=== PATIENT | male | born 1980 | race Caucasian/White ===

== ENCOUNTER 2017-07-24 23:00 | Emergency (ER) | payer SELFPAY ==
[2017-07-24] MEDS ORDERED: NS 1,000 ML IV ONE (23:28)
[2017-07-24] MEDS ORDERED: ONDANSETRON 4 MG/2 ML VIAL IVP ONE (23:28)
[2017-07-24] MEDS ORDERED: KETOROLAC 15 MG/1 ML SDV IVP ONE (23:28)
[2017-07-24] MEDS ORDERED: FAMOTIDINE 20 MG/NACL 50 ML IV ONE (23:28)
--- NOTE | 2017-07-24 23:29 | EDPHY ---
H & P Stated Complaint: UPPER ABD PAIN/NAUSEA X 3HRS Time Seen by Provider: 07/24/17 23:10 HPI/ROS: HPI The patient presents with abdominal pain which began at about 8:00 p.m. Became progressively worse. The pain is in his epigastric region though radiates throughout his abdomen. It is a burning and constant pain associated with some nausea without any vomiting. During the day today he had had 4 stools which is unusual for him. Otherwise he was feeling well. He ate a meal at 7:30 a.m. Of a protein shake, this made his symptoms worse. He has not had a fever. He has been feeling well otherwise. No prior abdominal operations. REVIEW OF SYSTEMS Constitutional: No fever, no chills. Eyes: No discharge. ENT: No sore throat. Cardiovascular: No chest pain, no palpitations. Respiratory: No cough, no shortness of breath. Gastrointestinal: See HPI Genitourinary: No hematuria. Musculoskeletal: No back pain. Skin: No rashes. Neurological: No headache. PMHx: Healthy, takes Zoloft only Soc Hx: Lives at home with , 1-2 beers a day PHYSICAL General Appearance: Alert, uncomfortable appearing Eyes: Pupils equal and round no pallor or injection ENT, Mouth: Mucous membranes moist Respiratory: There are no retractions, lungs are clear to auscultation Cardiovascular: Regular rate and rhythm Gastrointestinal: Abdomen is soft with tenderness in the epigastrium, no masses , bowel sounds normal Neurological: A&O, moves all extremities Skin: Warm and dry, no rashes Musculoskeletal: Neck is supple non tender Extremities: symmetrical, full range of motion Psychiatric: Patient is oriented X 3, there is no agitation Source: Patient Exam Limitations: No limitations - Personal History Current Tetanus Diphtheria and Acellular Pertussis (TDAP): Yes - Medical/Surgical History Hx Asthma: No Hx Chronic Respiratory Disease: No Hx Diabetes: No Hx Cardiac Disease: No Hx Renal Disease: No Hx Cirrhosis: No Hx Alcoholism: No Hx HIV/AIDS: No Hx Splenectomy or Spleen Trauma: No Other PMH: DENIES - Social History Smoking Status: Never smoked Constitutional: Initial Vital Signs Temperature (C) 36.9 C 07/24/17 23:04 Heart Rate 78 07/24/17 23:04 Respiratory Rate 14 07/24/17 23:04 Blood Pressure 122/82 H 07/24/17 23:04 O2 Sat (%) 95 07/24/17 23:04 O2 Delivery Mode Room Air O2 (L/minute) 2 Allergies/Adverse Reactions: No Known Allergies Allergy (Unverified 07/24/17 23:03) Home Medications: Medication Instructions Recorded NK [No Known Home Meds] 07/24/17 Medical Decision Making Differential Diagnosis: 36-year-old male presents with epigastric abdominal pain associated with nausea which is severe over the last several hours. On exam, vital signs are normal, he is uncomfortable appearing, he has epigastric tenderness. Differential diagnosis includes gastritis, GERD, biliary colic, cholecystitis, pancreatitis, perforated ulcer. 12:13 a.m.- Patient's labs were checked and do reveal leukocytosis, otherwise normal. He is reassessed and he is still having considerable pain. Abdominal exam reveals tenderness in the epigastrium. Plan for CT scan of his abdomen to evaluate for perforated viscus verses appendicitis. I have ordered additional pain medication. 2:45 a.m.- Patient has been feeling better for the last several hours. He was able to tolerate water and crackers. His abdominal exam is now benign. I feel he is likely suffered from gastritis. He refused CT scan. And now, given that his pain is improved, I feel this is reasonable. We have discussed return precautions, as he may be suffering from early appendicitis. Otherwise, I have advised him to drink plenty of fluids, maintain a bland diet, take H2 luna or antacid as needed for pain. - Data Points Laboratory Results: Laboratory Results 07/24/17 23:15 07/24/17 23:15 07/24/17 07/24/17 23:15 23:15 WBC 15.43 10^3/uL H 10^3/uL (3.80-9.50) RBC 5.24 10^6/uL 10^6/uL (4.40-6.38) Hgb 16.7 g/dL g/dL (13.7-17.5) Hct 47.0 % % (40.0-51.0) MCV 89.7 fL fL (81.5-99.8) MCH 31.9 pg pg (27.9-34.1) MCHC 35.5 g/dL g/dL (32.4-36.7) RDW 11.9 % % (11.5-15.2) Plt Count 235 10^3/uL 10^3/uL (150-400) MPV 9.5 fL fL (8.7-11.7) Neut % (Auto) 79.2 % H % (39.3-74.2) Lymph % (Auto) 13.4 % L % (15.0-45.0) [place] % (Auto) 6.0 % % (4.5-13.0) Eos % (Auto) 0.8 % % (0.6-7.6) Baso % (Auto) 0.3 % % (0.3-1.7) Nucleat RBC Rel Count 0.0 % % (0.0-0.2) Absolute Neuts (auto) 12.21 10^3/uL H 10^3/uL (1.70-6.50) Absolute Lymphs (auto) 2.07 10^3/uL 10^3/uL (1.00-3.00) Absolute Monos (auto) 0.92 10^3/uL H 10^3/uL (0.30-0.80) Absolute Eos (auto) 0.13 10^3/uL 10^3/uL (0.03-0.40) Absolute Basos (auto) 0.05 10^3/uL 10^3/uL (0.02-0.10) Absolute Nucleated RBC 0.00 10^3/uL 10^3/uL (0-0.01) Immature Gran % 0.3 % % (0.0-1.1) Immature Gran # 0.05 10^3/uL 10^3/uL (0.00-0.10) Sodium 137 mEq/L mEq/L (135-145) Potassium 3.7 mEq/L mEq/L (3.5-5.2) Chloride 99 mEq/L mEq/L (97-110) Carbon Dioxide 24 mEq/l mEq/l (22-31) Anion Gap 14 mEq/L mEq/L (8-16) BUN 18 mg/dL mg/dL (7-23) Creatinine 0.8 mg/dL mg/dL (0.7-1.3) Estimated GFR > 60 Glucose 108 mg/dL H mg/dL (70-100) Calcium 9.8 mg/dL mg/dL (8.5-10.4) Total Bilirubin 0.7 mg/dL mg/dL (0.1-1.4) Conjugated Bilirubin 0.3 mg/dL mg/dL (0.0-0.5) Unconjugated Bilirubin 0.4 mg/dL mg/dL (0.0-1.1) AST 25 IU/L IU/L (17-59) ALT 44 IU/L IU/L (21-72) Alkaline Phosphatase 87 IU/L IU/L (38-126) Total Protein 7.6 g/dL g/dL (6.3-8.2) Albumin 4.5 g/dL g/dL (3.5-5.0) Lipase 155 IU/L IU/L (23-300) Medications Given: Discontinued Medications Al Hydroxide/Mg Hydroxide (Maalox Susp) 30 ml PO ONCE ONE Stop: 07/25/17 01:27 Last Admin: 07/25/17 01:31 Dose: 30 ml Fentanyl (Sublimaze) 50 mcg IVP EDNOW ONE Stop: 07/25/17 00:14 Last Admin: 07/25/17 00:18 Dose: 50 mcg Hyoscyamine Sulfate (Levsin, Hyomax-Sl) 0.25 mg PO ONCE ONE Stop: 07/25/17 01:27 Last Admin: 07/25/17 01:33 Dose: 0.25 mg Sodium Chloride (Ns) 1,000 mls @ 0 mls/hr IV EDNOW ONE; Wide Open PRN Reason: Protocol Stop: 07/24/17 23:29 Last Admin: 07/24/17 23:44 Dose: 1,000 mls Famotidine/Sodium Chloride (Pepcid 20 Mg (Premix)) 50 mls @ 200 mls/hr IV EDNOW ONE Stop: 07/24/17 23:42 Last Admin: 07/24/17 23:45 Dose: 50 mls Sodium Chloride (Ns) 1,000 mls @ 0 mls/hr IV EDNOW ONE; Wide Open PRN Reason: Protocol Stop: 07/25/17 01:27 Last Admin: 07/25/17 01:32 Dose: 1,000 mls Sodium Chloride (Ns) 1,000 mls @ 0 mls/hr IV ONCE ONE; Wide Open PRN Reason: Protocol Stop: 07/25/17 01:27 Last Admin: 07/25/17 01:39 Dose: Not Given Ketorolac Tromethamine (Toradol) 15 mg IVP EDNOW ONE Stop: 07/24/17 23:29 Last Admin: 07/24/17 23:43 Dose: 15 mg Lidocaine (Lidocaine 2% Viscous) 15 ml PO ONCE ONE Stop: 07/25/17 01:27 Last Admin: 07/25/17 01:31 Dose: 15 ml Ondansetron HCl (Zofran) 4 mg IVP EDNOW ONE Stop: 07/24/17 23:29 Last Admin: 07/24/17 23:44 Dose: 4 mg Departure - Departure Disposition: Home, Routine, Self-Care Clinical Impression: Abdominal pain Qualifiers: Abdominal location: generalized Qualified Code(s): R10.84 - Generalized abdominal pain Condition: Good Instructions: Gastritis (ED), Diet for Stomach Ulcers and Gastritis (ED) Additional Instructions: You should return to the emergency department if your worse in any way. Otherwise, take clear liquids until your feeling better and then maintain a bland diet. Please avoid spicy food, acidic food, and alcohol. I recommend you take famotidine 20 mg twice a day. You can take this with Tums or another [id number] antacid. You should avoid ibuprofen. Referrals: [facility] [Primary Care Provider] - As per Instructions
[2017-07-24 23:33] LABS: PLATELET COUNT 235 10^3/uL (150-400)
[2017-07-25] MEDS ORDERED: fentaNYL 100 MCG/2 ML INJ IVP ONE (00:13)
[2017-07-25] MEDS ORDERED: IOPAMIDOL (ISOVUE-300) 100 ML BTL ONE (00:29)
[2017-07-25 00:58] VITALS: RESP 16
[2017-07-25] MEDS ORDERED: HYOSCYAMINE SULFATE 0.125 MG TAB PO ONE (01:26)
[2017-07-25] MEDS ORDERED: MAG HYDROX/AL HYDROX/SIMETH 30 ML UDCUP PO ONE (01:26)
[2017-07-25] MEDS ORDERED: LIDOCAINE 2% VISCOUS 15 ML UDCUP PO ONE (01:26)
[2017-07-25] MEDS ORDERED: NS 1,000 ML IV ONE ×2 (01:26)
[2017-07-25] MEDS ORDERED: LIDOCAINE 2% VISCOUS 15 ML UDCUP ONE (01:29)
[2017-07-25 02:52] VITALS: BP 114/68; PULSE 95; TEMP 98.1; O2SAT 92
== END 2017-07-25 03:00 | disposition home or self-care (01) ==
DX: R10.84 Generalized abdominal pain (principal); E86.9 Volume depletion, unspecified
CPT/HCPCS: 96374; J1885; J2405; J3010; Q9967

== ENCOUNTER 2017-07-25 10:36 | Inpatient (IN) | payer SELFPAY ==
[2017-07-25 11:01] LABS: PLATELET COUNT 251 10^3/uL (150-400)
--- NOTE | 2017-07-25 11:01 | EDPHY ---
H & P Stated Complaint: Abdominal pain Time Seen by Provider: 07/25/17 10:54 HPI/ROS: CHIEF COMPLAINT: Abdominal pain HISTORY OF PRESENT ILLNESS: The patient presents to the emergency department with complaints of worsening abdominal pain. He was seen in the emergency department yesterday with complaints of epigastric pain. He was evaluated at that point time noted to have leukocytosis. The patient had a somewhat inconsistent exam and did have some improvement of his symptoms. He was offered abdominal imaging and declined. He was instructed to return to the ED for any ongoing symptoms which he has done today. The patient reports he vomited once in the communication consultant hours. The patient has not had diarrhea. He denies prior history of the symptoms. His symptoms are worsened with movement and taking deep breaths. REVIEW OF SYSTEMS: A comprehensive 10 point review of systems is otherwise negative aside from elements mentioned in the history of present illness. Source: Patient - Personal History Current Tetanus Diphtheria and Acellular Pertussis (TDAP): Yes - Medical/Surgical History Hx Asthma: No Hx Chronic Respiratory Disease: No Hx Diabetes: No Hx Cardiac Disease: No Hx Renal Disease: No Hx Cirrhosis: No Hx Alcoholism: No Hx HIV/AIDS: No Hx Splenectomy or Spleen Trauma: No Other PMH: DENIES - Social History Smoking Status: Never smoked - Physical Exam Exam: General Appearance: Alert, mild discuss Eyes: Pupils equal and round no pallor or injection ENT, Mouth: Mucous membranes moist Respiratory: There are no retractions, lungs are clear to auscultation Cardiovascular: Regular rate and rhythm Gastrointestinal: Tenderness to palpation right lower quadrant, positive Rovsing, positive obturator Neurological: 5/5 strength noted all 4 extremities Skin: Warm and dry, no rashes Musculoskeletal: Neck is supple nontender Extremities: symmetrical, full range of motion Constitutional: Initial Vital Signs Temperature (C) 38.4 C H 07/25/17 10:37 Heart Rate 137 H 07/25/17 10:37 Respiratory Rate 18 07/25/17 10:37 Blood Pressure 105/68 07/25/17 10:37 O2 Sat (%) 92 07/25/17 10:37 O2 Delivery Mode Nasal Cannula O2 (L/minute) 2 Allergies/Adverse Reactions: No Known Allergies Allergy (Verified 07/25/17 10:37) Home Medications: Medication Instructions Recorded NK [No Known Home Meds] 07/24/17 Medical Decision Making - Diagnostics Imaging Results: Imaging Impressions Abdomen Ultrasound 07/25/17 11:02 Impression: Nonvisualization of the appendix with no secondary evidence of appendicitis. Findings discussed with Slava Canada 07/25/2017 at 11:42. ED Course/Re-evaluation: ED course: I reviewed the patient's workup from yesterday. The patient is noted to be tachycardic and have a low-grade fever of 38.4 degrees. The patient does have reproducible right lower quadrant tenderness with guarding. The patient does have a positive obturator and Rovsing sign on my clinical examination. The patient received 2 L of normal saline. Clinically his examination is suspicious for appendicitis. Consultation was made with Dr. Kelton Gamble at 11: 00 a.m.. A abdominal ultrasound has been ordered at his request. The patient's white blood cell count is now 26,000. The patient did receive 1 g of IV Invanz, at my discretion based upon his examination. The patient's ultrasound was nondiagnostic. 12:30pm: Given his ongoing tenderness and leukocytosis CT scan of the abdomen pelvis was ordered which demonstrates acute appendicitis. I discussed the case with Dr. Mcarthur from Radiology and reviewed the results of his CT scan personally. The patient will be admitted to the hospital under the care of Dr. Gamble for his appendicitis. I re-evaluated the patient at 1:15 p.m.. He is comfortable at this point time. Differential Diagnosis: Differential diagnosis considered includes appendicitis, peritonitis, mesenteric adenitis, pancreatitis, gastroenteritis, perforation - Data Points Laboratory Results: Laboratory Results 07/25/17 10:50 07/25/17 10:50 WBC 26.13 10^3/uL H D 10^3/uL (3.80-9.50) RBC 5.20 10^6/uL 10^6/uL (4.40-6.38) Hgb 16.7 g/dL g/dL (13.7-17.5) Hct 47.7 % % (40.0-51.0) MCV 91.7 fL fL (81.5-99.8) MCH 32.1 pg pg (27.9-34.1) MCHC 35.0 g/dL g/dL (32.4-36.7) RDW 11.9 % % (11.5-15.2) Plt Count 251 10^3/uL 10^3/uL (150-400) MPV 9.5 fL fL (8.7-11.7) Neut % (Auto) 88.5 % H % (39.3-74.2) Lymph % (Auto) 4.2 % L % (15.0-45.0) [place] % (Auto) 6.2 % % (4.5-13.0) Eos % (Auto) 0.0 % L % (0.6-7.6) Baso % (Auto) 0.2 % L % (0.3-1.7) Nucleat RBC Rel Count 0.0 % % (0.0-0.2) Absolute Neuts (auto) 23.14 10^3/uL H 10^3/uL (1.70-6.50) Absolute Lymphs (auto) 1.09 10^3/uL 10^3/uL (1.00-3.00) Absolute Monos (auto) 1.63 10^3/uL H 10^3/uL (0.30-0.80) Absolute Eos (auto) 0.00 10^3/uL L 10^3/uL (0.03-0.40) Absolute Basos (auto) 0.04 10^3/uL 10^3/uL (0.02-0.10) Absolute Nucleated RBC 0.00 10^3/uL 10^3/uL (0-0.01) Immature Gran % 0.9 % % (0.0-1.1) Immature Gran # 0.23 10^3/uL H 10^3/uL (0.00-0.10) Medications Given: Fentanyl (Sublimaze) 50 mcg IVP EDNOW ONE Stop: 07/25/17 12:16 Last Admin: 07/25/17 12:25 Dose: 50 mcg Discontinued Medications Ertapenem (Invanz) 1 gm IVP EDNOW ONE PRN Reason: Protocol Stop: 07/25/17 11:14 Last Admin: 07/25/17 11:27 Dose: 1 gm Sodium Chloride (Ns) 1,000 mls @ 0 mls/hr IV EDNOW ONE; Wide Open PRN Reason: Protocol Stop: 07/25/17 11:03 Last Admin: 07/25/17 11:09 Dose: 1,000 mls Morphine Sulfate (Morphine) 4 mg IVP EDNOW ONE Stop: 07/25/17 11:04 Last Admin: 07/25/17 11:08 Dose: 4 mg Morphine Sulfate (Morphine) 4 mg IVP EDNOW ONE Stop: 07/25/17 11:35 Last Admin: 07/25/17 11:37 Dose: 4 mg Ondansetron HCl (Zofran) 4 mg IVP EDNOW ONE Stop: 07/25/17 11:35 Last Admin: 07/25/17 11:37 Dose: 4 mg Departure - Departure Disposition: [facility] Inpatient Acute Clinical Impression: Acute appendicitis Qualifiers: Acute appendicitis type: with localized peritonitis Qualified Code(s): K35.3 - Acute appendicitis with localized peritonitis Condition: Good
[2017-07-25] MEDS ORDERED: NS 1,000 ML IV ONE (11:02)
[2017-07-25] MEDS ORDERED: ERTAPENEM 1 GM VIAL IVP ONE (11:13)
[2017-07-25] MEDS ORDERED: ONDANSETRON 4 MG/2 ML VIAL IVP ONE (11:34)
[2017-07-25] MEDS ORDERED: IOPAMIDOL (ISOVUE-300) 100 ML BTL ONE (12:03)
[2017-07-25] MEDS ORDERED: fentaNYL 100 MCG/2 ML INJ IVP ONE (12:15)
[2017-07-25] MEDS ORDERED: fentaNYL 100 MCG/2 ML INJ ONE ×2 (12:21→13:45)
--- NOTE | 2017-07-25 12:46 | PDCONSULT ---
[employer]ations Associate Note: Surgical Consult requested by Dr. Canada. Jacky is a 36 y/o male with abdominal pain starting last night. Pain localized to the RLQ and was associated with N/V/fever He was seen in the ED last night and was noted to have a mild leukocytosis. He felt better after some analgesics and was released to go home. He returned today for worsening symptoms and was seen by Dr. Slava Canada. His wbc is now 25K and he is febrile. He reports constant pain in the RLQ and feels chills. 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 diverticulitis Rec: will confirm with CT abd/pelvis IV fluids/Abx If appendicitis confirmed proceed with appendectomy Miguel Gamble MD, FACS
[2017-07-25] MEDS ORDERED: BUPIVACAINE 0.25% 30 ML SDV ONE (13:10)
--- NOTE | 2017-07-25 13:28 | PDANEPAE ---
ANE Past Medical History - Pulmonary History Hx Oxygen in Use at Home: No - Endocrine History Hx Diabetes: No ANE Review of Systems Review of Systems: ANE Patient History - Allergies Allergies/Adverse Reactions: No Known Allergies Allergy (Verified 07/25/17 10:37) - Home Medications Home Medications: Herbals/Supplements -Info Only 1 ea PO DAILY 07/25/17 [Last Taken 07/24/17] Sertraline HCl [Zoloft 50mg (*)] 50 mg PO DAILY 07/25/17 [Last Taken 07/24/17] - NPO status NPO Since - Liquids (Date): 07/25/17 NPO Since - Liquids (Time): 02:30 NPO Since - Solids (Date): 07/25/17 NPO Since - Solids (Time): 02:30 - Smoking Hx Smoking Status: Never smoked ANE Labs/Vital Signs - Labs Result Diagrams: 07/25/17 10:50 07/25/17 Unknown - Vital Signs Blood Pressure: 119/64 Heart Rate: 98 Respiratory Rate: 18 O2 Sat (%): 96 Height: 175.26 cm Weight: 79.379 kg ANE Physical Exam - ASA Status ASA Status: I, E ANE Anesthesia Plan Anesthesia Plan: general endotracheal anesthesia
[2017-07-25] MEDS ORDERED: MIDAZOLAM 2 MG/2 ML VIAL ONE (13:45)
[2017-07-25] MEDS ORDERED: PROPOFOL 200 MG/20 ML VIAL ONE (13:45)
[2017-07-25] MEDS ORDERED: NALOXONE HCL 0.4 MG/ML INJ IVP PRN (14:47)
[2017-07-25] MEDS ORDERED: LR 500 ML IV PRN (14:47)
[2017-07-25] MEDS ORDERED: fentaNYL 100 MCG/2 ML INJ IVP PRN (14:47)
--- NOTE | 2017-07-25 14:48 | POSTANESTH ---
Post Anesthetic Evaluation Cardiovascular Status: Normal, Stable Respiratory Status: Normal, Stable Level of Consciousness/Mental Status: Can Participate in Eval Pain Control: Adequate, Prn Tx Ordered Nausea/Vomiting Control: Adequate, Prn Tx Ordered Complications Possibly Related to Anesthesia: None Noted
--- NOTE | 2017-07-25 14:50 | POSTOPPROG ---
Post Op Note Date of Operation: 07/25/17 Surgeon: Kelton Gamble (, FACS) Anesthesiologist: Eric Chan Anesthesia: GET(General Endotracheal) Pre-op Diagnosis: acute appendicitis Post-op Diagnosis: acute suppurative appendicitis Procedure: lap appendectomy Findings: acute suppurative appendicitis Inf/Abcess present in the surg proc area at time of surgery?: Yes Depth: Organ Space Complications: none
[2017-07-25] MEDS ORDERED: KETOROLAC 30 MG/1 ML SDV IVP ONE (14:55)
[2017-07-25] MEDS ORDERED: KETOROLAC 30 MG/1 ML SDV ONE (15:00)
[2017-07-25] MEDS: LR 1,000 ML IV SCH (17:44)
[2017-07-25] MEDS: OXYCODONE/APAP 5/325 TAB PO PRN (17:52)
--- NOTE | 2017-07-25 18:50 | GOP ---
[f rep st] OPERATIVE REPORT DATE OF OPERATION: 07/25/2017 SURGEON: Kelton Gamble MD, FACS ANESTHESIA: General endotracheal, Eric Chan M.D. PREOPERATIVE DIAGNOSIS: Acute appendicitis. POSTOPERATIVE DIAGNOSIS: Acute appendicitis. PROCEDURE PERFORMED: Laparoscopic appendectomy. FINDINGS: Acute suppurative appendicitis with cloudy peritoneal fluid in the right paracolic gutter. Atypical location of the cecum at the level of the patient's umbilicus. ESTIMATED BLOOD LOSS: 5 mL. DESCRIPTION OF PROCEDURE: After informed consent was obtained, the patient was brought to the operating room and placed under general anesthesia. The abdomen was prepped and draped in the usual fashion. The patient had received 1 g of Invanz while in the emergency room. Before proceeding, a time-out and identification of the patient was performed. 0.25% Marcaine was used to infiltrate all incision sites. A longitudinal incision was made through the base of the umbilicus and carried through the skin and subcutaneous tissues. Ventral traction was applied to the abdominal wall and a Veress needle was introduced into the peritoneal cavity and position was confirmed by saline infusion. A pneumoperitoneum was established with CO2 gas to a pressure of 15 mmHg. The Veress needle was withdrawn and replaced with a 5 mm bladeless trocar. A 30-degree scope was introduced and the peritoneal cavity was visualized. The cecum was abnormally high in the abdomen and an additional 5 mm port was placed above the umbilicus to the right of the falciform ligament. This allowed introduction of atraumatic grasping forceps. Rotating the cecum medially, the appendix was identified and was surrounded by cloudy peritoneal fluid. A 12 mm port was placed in the left lower quadrant. Using atraumatic forceps and the Harmonic Scalpel, the appendix was dissected away from the peritoneum. The mesoappendix was taken down with the Harmonic Scalpel for hemostasis, and after this was completed, the appendix was from the cecum with a single firing of the PEBBLES stapler. The appendix was retrieved through the left lower quadrant port site using an Endopouch. The operative field was irrigated and aspirated until the effluent was clear. Hemostasis appeared secure. The left lower quadrant port site was closed with a transfascial closure needle and 0 Vicryl suture. The pneumoperitoneum was evacuated and the remaining ports were removed. Subcutaneous tissues were approximated with 3-0 Monocryl suture. Skin was closed with 4-0 Monocryl suture in a subcuticular fashion. Topical Dermabond was applied over the incisions. The patient was extubated and brought to the recovery room in satisfactory condition. Needle, sponge, and instrument count correct. COMPLICATIONS: None. /[id number]/MODL MTDD
[2017-07-25] MEDS: IBUPROFEN 600 MG TAB PO SCH (22:11)
[2017-07-26] MEDS: OXYCODONE/APAP 5/325 TAB PO PRN ×5 (02:27→21:00)
[2017-07-26] MEDS: IBUPROFEN 600 MG TAB PO SCH ×3 (05:36→21:00)
[2017-07-26] MEDS ORDERED: POLYETHYLENE GLYCOL 3350 17 GM PKT PO PRN (07:27)
[2017-07-26] MEDS ORDERED: MAGNESIUM HYDROXIDE 30 ML UDCUP PO PRN (07:27)
[2017-07-26] MEDS ORDERED: LACTULOSE 20 GM/30 ML UDCUP PO PRN (07:27)
[2017-07-26] MEDS ORDERED: BISACODYL 10 MG SUPP PR PRN (07:27)
--- NOTE | 2017-07-26 07:30 | SOAPPROG ---
SOAP Progress Note Assessment/Plan: Assessment: Plan: Subjective: feels bloated, passing minimal flatus Objective: Vital Signs Temp Pulse Resp BP Pulse Ox 36.6 C 70 16 94/63 L 93 07/26/17 07:01 07/26/17 07:01 07/26/17 07:01 07/26/17 07:01 07/26/17 07:01 Laboratory Results 07/25/17 Unknown 07/25/17 07/26/17 07/27/17 05:59 05:59 05:59 Intake Total 3150 Output Total 1105 Balance 2045 - Pending Discharge Pending Discharge Within 24 Hours: Yes Pending Discharge Date: 07/27/17 Pending Discharge Time: 11:00 Physical Exam - Physical Exam General Appearance: no apparent distress Respiratory: lungs clear, decreased breath sounds Abdomen: soft, distended, other (hypoactive bowel sounds/incisions healing well) Neuro/Psych: alert, normal mood/affect, oriented x 3 ICD10 Worksheet Patient Problems: Problems Problem Status Onset Acute appendicitis Acute
[2017-07-26] MEDS: SERTRALINE HCL 50 MG TAB PO SCH (09:33)
[2017-07-26] MEDS: SENNOSIDES/DOCUSATE SODIUM TAB PO SCH ×2 (09:34→21:00)
[2017-07-26] MEDS: ERTAPENEM 1 GM VIAL IV SCH (09:35)
[2017-07-26] MEDS: LR 1,000 ML IV SCH (11:26)
--- NOTE | 2017-07-26 16:59 | ASMTCMCOM ---
CM Note CM Note Notes: 07/26/2017 Case Management Note Pt admitted for appendicitis and had surgery on 07/25. There are no case management d/c needs identified d/t pt age, activity levels prior to admisison, marital status and employment status. There are no PT or OT evals ordered at this time. Case Management d/c poc: anticipating independent with follow up as directed. Case Management available if needs change. Date Signed: 07/26/2017 04:58 PM Electronically Signed By:Kimberly Harris RN
[2017-07-27] MEDS: OXYCODONE/APAP 5/325 TAB PO PRN ×2 (01:48→09:35)
--- NOTE | 2017-07-27 07:17 | PDDCSUM ---
Discharge Summary Discharge Summary: DOA 07/25/17 DOD 07/27/17 DC Dx: acute appendicitis with localized peritonitis Procedure: 07/25/17 lap appendectomy Course: Jacky presented with moderately advanced appendicitis with fever + leukocytosis. He was brought to the OR after receiving IV fluids and IV Ertapenam for appendectomy. Post op he was continued on Ertapenam. His fever resolved as did his leukocytosis. He had a mild post op ileus and was tolerating a regular diet and had not yet had a BM at time of this note. He will be discharged home after his next dose of Ertapenam and start Augmentin 875 mg po BID this evening Condition at time of discharge improved. FU my office one to two weeks Rx: Percocet 5/325 #20 Ibuprofen 600 mg #30 Senokot S #30 Miralax OTC prn + resume Sertraline S MD Mavis, FACS
[2017-07-27] MEDS: IBUPROFEN 600 MG TAB PO SCH (07:54)
[2017-07-27] MEDS: SENNOSIDES/DOCUSATE SODIUM TAB PO SCH (07:55)
[2017-07-27] MEDS: SERTRALINE HCL 50 MG TAB PO SCH (07:56)
[2017-07-27] MEDS: ERTAPENEM 1 GM VIAL IV SCH (07:56)
[2017-07-27 08:05] VITALS: BP 113/76; PULSE 85; RESP 16; TEMP 98.2; O2SAT 90
[2017-07-27] MEDS ORDERED: AMOXICILLIN/CLAVULANATE POT 875/125 MG TAB PO SCH (21:00)
== END 2017-07-27 11:24 | disposition home or self-care (01) | DRG 340 ==
LOC: INTOOBSV 13:05 → F3E 16:05 → OBSVTOIN 07-26 08:40
PROVIDERS: ADMIT Surgery; ATTEND Surgery
PROC: 0DTJ4ZZ Resection of Appendix, Percutaneous Endoscopic Approach (ICD-10-PCS; principal; 2017-07-25 13:05)
DX: K35.3 Acute appendicitis with localized peritonitis (principal)
CPT/HCPCS: 96374; G0378; J1200; J1335; J1885; J2250; J2270; J2405; J2704; J3010; Q9967

== ENCOUNTER 2017-07-28 13:44 | Inpatient (IN) | payer SELFPAY ==
--- NOTE | 2017-07-28 13:53 | EDPHY ---
H & P Stated Complaint: hypoxia/abd pain post appy Time Seen by Provider: 07/28/17 13:51 HPI/ROS: CHIEF COMPLAINT: Dyspnea, abdominal pain, chest pain, weakness HISTORY OF PRESENT ILLNESS: 36-year-old male postop day [address] Gamble complaining of abdominal pain, dyspnea, weakness. He has been taking his Percocet as prescribed. His , who is a physician, noted that he appeared cyanotic this morning, checked his pulse oxygenation with a resultant low 70%. No apneic episodes. No coughing. Bowel movements have been normal. Urinary habits have been normal. REVIEW OF SYSTEMS: A ten point review of systems was performed and is negative with the exception of the items mentioned in the HPI PAST MEDICAL & SURGICAL HISTORY: Postop day [address] Matty Gamble SOCIAL HISTORY: Nonsmoker PHYSICAL EXAM (Prior to examination, patient consented to physical exam, hands were washed and my usual and customary physical exam procedures followed) 1) GENERAL: Well-developed, well-nourished, alert and oriented. Appears nontoxic 2) HEAD: Normocephalic, atraumatic 3) HEENT: Pupils equal, round, reactive to light bilaterally. Sclera anicteric. Nasopharynx, oropharynx, clear, no lesions. 4) NECK: Full range of motion, no meningeal signs. 5) LUNGS: Clear auscultation bilaterally, no wheezes, no rhonchi, no retractions. 6) HEART: Regular rate and rhythm, no murmur, no heave, no gallop. 7) ABDOMEN: Surgical wounds intact with no dehiscence no infection. He is diffusely tender to palpation all quadrants left lower quadrant greater than others. 8) MUSCULOSKELETAL: Moving all extremities, no focal areas of tenderness, no obvious trauma. No peripheral edema or discoloration. 9) BACK: No CVA tenderness, no midline vertebral tenderness, no fluctuance, no step-off, no obvious trauma, no visual or palpable abnormality. 10) SKIN: No rash, no petechiae. 11) Psychiatric: Patient is oriented X 3, there is no agitation. DIFFERENTIAL DIAGNOSIS: In no particular include but not limited to atelectasis , pneumonia, PE, intra-abdominal abscess - Personal History Current Tetanus/Diphtheria Vaccine: Yes - Medical/Surgical History Hx Asthma: No Hx Chronic Respiratory Disease: No Hx Diabetes: No Hx Cardiac Disease: No Hx Renal Disease: No Hx Cirrhosis: No Hx Alcoholism: No Hx HIV/AIDS: No Hx Splenectomy or Spleen Trauma: No Other PMH: Depression/appy - Social History Smoking Status: Never smoked Constitutional: Initial Vital Signs Temperature (C) 37.1 C 07/28/17 13:48 Heart Rate 115 H 07/28/17 13:48 Respiratory Rate 20 07/28/17 13:48 Blood Pressure 136/80 H 07/28/17 13:48 O2 Sat (%) 84 L 07/28/17 13:48 O2 Delivery Mode Room Air O2 (L/minute) 3 Allergies/Adverse Reactions: No Known Allergies Allergy (Verified 07/28/17 13:47) Home Medications: Medication Instructions Recorded Herbals/Supplements -Info Only 1 ea PO DAILY 07/25/17 Sertraline HCl [Zoloft 50mg (*)] 50 mg PO DAILY 07/25/17 Amoxicillin/Clavulanate Pot 875 mg PO BID #10 tab 07/27/17 [Augmentin 875 MG TAB (*)] Ibuprofen [Motrin (*)] 600 mg PO Q8HRS #30 tab 07/27/17 Polyethylene Glycol 3350 [Miralax 17 gm PO DAILY PRN #14 pkt 07/27/17 17 gm (*)] Sennosides/Docusate Sodium 1 - 2 tab PO BID #30 tab 07/27/17 [Senokot-S] oxyCODONE/APAP 5/325 [Percocet 1 - 2 tab PO Q4HRS PRN #20 tab 07/27/17 5/325 (*)] Medical Decision Making - Diagnostics Imaging Results: Imaging Impressions Abdomen CT 07/28/17 14:09 Impression: 1. No evidence of abdominal or pelvic abscess, fluid collection, pneumoperitoneum, or bowel obstruction. 2. Recent appendectomy, without abscess. Findings and recommendations discussed with Emergency Department physician, Darshan Garcia PA-C, at 1500 hours, on July 28, 2017. Final report concurs with initial preliminary interpretation. Chest/Thorax CTA 07/28/17 14:09 Impression: 1. No definite pulmonary thromboemboli. 2. Small bilateral pleural effusions. 3. Bilateral lower lobe and right upper lobe pneumonia. Findings and recommendations discussed with Emergency Department physician, Kristin Garcia PA-C at 1500 hour, 07/28/2017. Final report concurs with initial preliminary interpretation. A test result has been communicated to a licensed care provider and documented in the [employer] [facility] Result system on 07/28/2017 15:30, Message ID [id number]. ED Course/Re-evaluation: 2:04 p.m.: Old medical records reviewed. Discussed case with secondary supervising physician Dr. Nikolas Keenan in the ER. Patient is complaining new, diffuse abdominal pain, new dyspnea with oxygenation in the low 70s this morning as with cyanosis, current room air saturations in the mid 80s, increases with supple oxygen. Discussed with the patient and his , who is a physician, possible etiology includes including, but not limited to, pneumonia , atelectasis, pulmonary embolus, in addition he is experiencing diffuse abdominal pain, although intra-abdominal abscess I think would be less than likely a postop day 3, recommended CT imaging of the chest abdomen and pelvis. Anticipate likely hospital admission. They do note that they are ready spoke with their insurance company and there is a 2 day wait list for home oxygen. High clinical suspicion for pulmonary embolus based on patient's tachycardia, tachypnea, hypoxia, recent surgery, immobilization in the postoperative.. Will proceed with CT angiography. Patient does not meet sepsis screening criteria 3:36 pm: Consultation with hospitalist Dr Los Servin who will admit for pneumonia, hypoxia. 3:51 p.m.: Phone consultation with Dr. Kelton Gamble to alert him that the patient is being admitted to the hospital. He states that he will see the patient in the hospital tomorrow. - Data Points Laboratory Results: Laboratory Results 07/28/17 14:08 07/28/17 14:08 07/28/17 07/28/17 07/28/17 14:14 14:08 14:08 WBC RBC Hgb POC Hgb 14.6 gm/dL gm/dL (13.7-17.5) Hct POC Hct 43 % % (40-51) MCV MCH MCHC RDW Plt Count MPV Neut % (Auto) Lymph % (Auto) [place] % (Auto) Eos % (Auto) Baso % (Auto) Nucleat RBC Rel Count Absolute Neuts (auto) Absolute Lymphs (auto) Absolute Monos (auto) Absolute Eos (auto) Absolute Basos (auto) Absolute Nucleated RBC Immature Gran % Immature Gran # PT INR APTT POC Sodium 141 mEq/L mEq/L (135-145) Sodium 141 mEq/L mEq/L (135-145) POC Potassium 3.4 mEq/L mEq/L (3.3-5.0) Potassium 3.5 mEq/L mEq/L (3.5-5.2) POC Chloride 102 mEq/L mEq/L (97-110) Chloride 104 mEq/L mEq/L (97-110) Carbon Dioxide 25 mEq/l mEq/l (22-31) Anion Gap 12 mEq/L mEq/L (8-16) POC BUN 8 mg/dL mg/dL (7-23) BUN 9 mg/dL mg/dL (7-23) Creatinine 0.8 mg/dL mg/dL (0.7-1.3) POC Creatinine 0.8 mg/dL mg/dL (0.7-1.3) Estimated GFR > 60 Glucose 111 mg/dL H mg/dL (70-100) POC Glucose 115 mg/dL H mg/dL (70-100) Calcium 9.0 mg/dL mg/dL (8.5-10.4) Total Bilirubin 0.3 mg/dL mg/dL (0.1-1.4) Conjugated Bilirubin 0.2 mg/dL mg/dL (0.0-0.5) Unconjugated Bilirubin 0.1 mg/dL mg/dL (0.0-1.1) AST 25 IU/L IU/L (17-59) ALT 31 IU/L IU/L (21-72) Alkaline Phosphatase 65 IU/L IU/L (38-126) Total Protein 6.4 g/dL g/dL (6.3-8.2) Albumin 3.4 g/dL L g/dL (3.5-5.0) Lipase 59 IU/L IU/L (23-300) Procalcitonin Pending 07/28/17 07/28/17 14:08 14:08 WBC 9.43 10^3/uL 10^3/uL (3.80-9.50) RBC 4.66 10^6/uL 10^6/uL (4.40-6.38) Hgb 14.8 g/dL g/dL (13.7-17.5) POC Hgb Hct 42.6 % % (40.0-51.0) POC Hct MCV 91.4 fL fL (81.5-99.8) MCH 31.8 pg pg (27.9-34.1) MCHC 34.7 g/dL g/dL (32.4-36.7) RDW 11.9 % % (11.5-15.2) Plt Count 241 10^3/uL D 10^3/uL (150-400) MPV 9.3 fL fL (8.7-11.7) Neut % (Auto) 73.4 % % (39.3-74.2) Lymph % (Auto) 16.8 % % (15.0-45.0) [place] % (Auto) 7.0 % % (4.5-13.0) Eos % (Auto) 1.4 % % (0.6-7.6) Baso % (Auto) 0.3 % % (0.3-1.7) Nucleat RBC Rel Count 0.0 % % (0.0-0.2) Absolute Neuts (auto) 6.93 10^3/uL H 10^3/uL (1.70-6.50) Absolute Lymphs (auto) 1.58 10^3/uL 10^3/uL (1.00-3.00) Absolute Monos (auto) 0.66 10^3/uL 10^3/uL (0.30-0.80) Absolute Eos (auto) 0.13 10^3/uL 10^3/uL (0.03-0.40) Absolute Basos (auto) 0.03 10^3/uL 10^3/uL (0.02-0.10) Absolute Nucleated RBC 0.00 10^3/uL 10^3/uL (0-0.01) Immature Gran % 1.1 % % (0.0-1.1) Immature Gran # 0.10 10^3/uL 10^3/uL (0.00-0.10) PT 12.8 SEC SEC (12.0-15.0) INR 0.94 (0.83-1.16) APTT 26.0 SEC SEC (23.0-38.0) POC Sodium Sodium POC Potassium Potassium POC Chloride Chloride Carbon Dioxide Anion Gap POC BUN BUN Creatinine POC Creatinine Estimated GFR Glucose POC Glucose Calcium Total Bilirubin Conjugated Bilirubin Unconjugated Bilirubin AST ALT Alkaline Phosphatase Total Protein Albumin Lipase Procalcitonin Medications Given: Discontinued Medications Ketorolac Tromethamine (Toradol) 15 mg IVP EDNOW ONE Stop: 07/28/17 14:48 Last Admin: 07/28/17 14:51 Dose: 15 mg Point of Care Test Results: 07/28/17 14:14 POC Sodium 141 POC Potassium 3.4 POC Chloride 102 POC BUN 8 POC Creatinine 0.8 POC Glucose 115 H Departure - Departure Disposition: [facility] Inpatient Acute Clinical Impression: Hypoxia Pneumonia Qualifiers: Pneumonia type: due to unspecified organism Laterality: right Lung location: upper lobe of lung Qualified Code(s): J18.1 - Lobar pneumonia, unspecified organism Condition: Fair
[2017-07-28 14:17] LABS: PLATELET COUNT 241 10^3/uL (150-400)
[2017-07-28] MEDS ORDERED: IOPAMIDOL (ISOVUE 370) 100 ML BTL IV ONE (14:23)
[2017-07-28 14:25] LABS: INR 0.94 (0.83-1.16); PROTIME(PATIENT) 12.8 SEC (12.0-15.0)
[2017-07-28] MEDS ORDERED: KETOROLAC 15 MG/1 ML SDV IVP ONE (14:47)
[2017-07-28] MEDS ORDERED: CEFEPIME HCL 2 GM in STERILE WATER INJ 12.5 ML IV ONE (15:29)
[2017-07-28] MEDS ORDERED: ACETAMINOPHEN 325 MG TAB PO PRN (16:43)
[2017-07-28] MEDS: NS 1,000 ML IV SCH (17:16)
[2017-07-28] MEDS ORDERED: IPRATROPIUM/ALBUTEROL 3 ML DEYVIAL ONE (17:24)
[2017-07-28] MEDS ORDERED: OXYCODONE/APAP 5/325 TAB PO PRN (18:01)
[2017-07-28] MEDS ORDERED: fentaNYL 100 MCG/2 ML INJ IVP PRN (18:02)
--- NOTE | 2017-07-28 19:05 | GHP ---
[f rep st] HISTORY AND PHYSICAL DATE OF ADMISSION: 07/28/2017 CHIEF COMPLAINT: Hypoxia, shortness of breath, and dizziness. HISTORY OF PRESENT ILLNESS: The patient is a pleasant, 36-year-old gentleman with no major past medi carlos history other than a recent appendicitis, being discharged from hospital this yesterday, who woke up this morning with subjective fevers and dizziness. He has had a mild cough as well. His lalitha kelley is a physician had a pulse oximeter at home and checked his pulse ox readings and noted him to be q uite low, in the 80s. At that point in time, he came to the emergency room for additional evaluation. A CT scan of his [address] was performed to evaluate for the possibility of a pulmonary embolism. No definite pulmonary thro mboemboli were noted. However, small bilateral pleural effusions were seen with bilateral lower lobe and right upper lobe pneumonia. The CT scan of his abdomen was also performed, as he did just have appendectomy. There were no concerning findings noted. No abscess is seen. PAST MEDICAL HISTORY: Depression. PAST SURGICAL HISTORY: 1. Recent appendectomy. 2. [place] teeth extraction. MEDICATIONS: Sertraline 50 mg daily. ALLERGIES: No known drug allergies. FAMILY HISTORY: Mother and father are both living. Breast and skin cancers do run in multiple famil y members. SOCIAL HISTORY: Patient is a nonsmoker. He is currently . His is a local chief school finance officer. He does have children. 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 Full code status. REVIEW OF SYSTEMS: CONSTITUTIONAL: Positive for subjective fevers, which he woke with early in the morning. HEENT: No recent upper respiratory illnesses. CARDIOVASCULAR: No complaints of any palpi tations or syncopal episodes. RESPIRATORY: Positive for mildly productive cough and subjective shor tness of breath. GI: Positive for recent nausea. He does have abdominal pain in the areas of his r ecent surgery. : He noticed some flow changes with his urination after surgery, but no burning wit h urination or malodorous urine. NEUROLOGIC: No complaints of any headaches or focal weakness. HEM ATOLOGIC: No history of any deep vein thrombosis or pulmonary embolism. PSYCHIATRIC: Patient is on SSRI therapy. ENDOCRINE: No history of diabetes or thyroid abnormalities. SKIN: No new skin rash es. MUSCULOSKELETAL: No focal joint pains. PHYSICAL EXAM: VITAL SIGNS: Temperature 36.9, blood pressure is 130/85, heart rate 90, respirations 16, saturating 91% 2 L nasal cannula. GENERAL: Patient appears comfortable. He is awake, alert, c onversant, able to provide a good history. No acute distress: HEENT: Extraocular movements appear intact without scleral icterus. NECK: No thyroid enlargement noted. CHEST: Normal respiratory eff ort. Slight crackles at left lung base. No significant wheezing is appreciated. Clear anteriorly i n the upper lobes. HEART: Regular. No murmurs. ABDOMEN: Mildly distended and tender to the lower abdomen with palpation. He localizes some pain around the incision site on the left lower abdomen. No significant erythema at the incision site. Bowel sounds are normal. : No Zamudio catheter in p lace. EXTREMITIES: No significant pitting edema. MUSCULOSKELETAL: No calf pain with palpation NEURO LOGIC: Cranial nerves 2-12 appear intact. Normal strength of extremities. LABORATORY DATA: White blood cell count is 9, hemoglobin 14, platelets 241. Sodium is 141, potassiu m 3.5, chloride 104, bicarb 25, BUN is 9, creatinine 0.8, glucose of 111. INR 0.9, PTT 26. AST 25, ALT 31, alkaline phosphatase 65, bilirubin is within normal limits. Procalcitonin 0.16. IMAGING: As detailed in the HPI. ASSESSMENT/PLAN: 1. Acute hypoxic respiratory failure. Patient is needing small amount of oxygen to maintain normal saturations at this point in time. Appears secondary to pneumonia noted on chest CT. There may be s ome element of atelectasis as well. The patient does have incentive spirometry at the bedside. Will schedule DuoNeb nebulizers and empiric antibiotic treatment for pneumonia. 2. Pneumonia. This is a healthcare-associated pneumonia. I have recommend starting empiric cefepim e. I have ordered methicillin-resistant Staphylococcus aureus screen. For now, I am going to hold v ancomycin, but if worsening overnight we will add vancomycin to the course. Otherwise, await methici llin-resistant Staphylococcus aureus screen and see how he does clinically. 3. Abdominal pain. The patient notes some aversion to Percocet. It may make him somewhat nauseated . We will try Rosalie instead. Intravenous fentanyl is also in place. 4. Appendicitis. Patient is status post surgery. There does not appear to be any complications fro m the CT performed today. 5. Deep venous thrombosis prophylaxis. Lovenox. DISPOSITION: I anticipate he will be here for over 2 midnights, probably 3-5 days. I will admit him under inpatient status. /[id number]/MODL
[2017-07-28] MEDS: HYDROCODONE/APAP 5/325 TAB PO PRN ×2 (20:13→21:04)
[2017-07-28] MEDS: IPRATROPIUM/ALBUTEROL 3 ML DEYVIAL IH SCH (20:49)
[2017-07-28] MEDS ORDERED: CEFEPIME HCL 2 GM in STERILE WATER INJ 12.5 ML IV SCH (22:00)
[2017-07-29] MEDS: HYDROCODONE/APAP 5/325 TAB PO PRN ×5 (02:00→22:31)
[2017-07-29] MEDS: NS 1,000 ML IV SCH (04:28)
[2017-07-29 04:53] LABS: PLATELET COUNT 202 10^3/uL (150-400)
[2017-07-29] MEDS: IPRATROPIUM/ALBUTEROL 3 ML DEYVIAL IH SCH ×4 (05:28→20:51)
[2017-07-29] MEDS ORDERED: CEFEPIME HCL 2 GM in STERILE WATER INJ 12.5 ML IV SCH (06:00)
[2017-07-29] MEDS: SERTRALINE HCL 50 MG TAB PO SCH (08:49)
[2017-07-29] MEDS: ENOXAPARIN 40 MG/0.4 ML SYR SC SCH (08:51)
--- NOTE | 2017-07-29 09:42 | SOAPPROG ---
SOAP Progress Note Assessment/Plan: Assessment: s/p lap appendectomy for acute suppurative appendicitis with localized peritonitis 07/25 re-admitted last night with hypoxemia CT findings reviewed: pneumonia vs. atelectasis (normal wbc, near normal procalcitonin) Plan: continue IS/increased activity Rx per Hospitalist outpatient surgical follow up next week. Miguel Gamble MD, FACS 07/29/17 09:40 Subjective: feeling better than yesterday. off O2 reports tolerating regular diet/loose stools Objective: Vital Signs Temp Pulse Resp BP Pulse Ox 36.8 C 71 14 134/90 H 95 07/29/17 08:34 07/29/17 08:34 07/29/17 05:28 07/29/17 08:34 07/29/17 08:34 Laboratory Results 07/29/17 04:23 07/29/17 04:23 07/28/17 07/29/17 07/30/17 05:59 05:59 05:59 Intake Total 1915 Output Total 1200 625 Balance 715 -625 PT 12.8 SEC (12.0-15.0) 07/28/17 14:08 INR 0.94 (0.83-1.16) 07/28/17 14:08 Physical Exam - Physical Exam General Appearance: no apparent distress Respiratory: lungs clear, decreased breath sounds Cardiac/Chest: regular rate, rhythm Abdomen: non-tender, soft, other (lap incisions healing without signs of infection) Male Genitalia: deferred Rectal: deferred Skin: warm/dry Neuro/Psych: alert, normal mood/affect, oriented x 3 ICD10 Worksheet Patient Problems: Problems Problem Status Onset Hypoxia Acute Pneumonia Acute Acute appendicitis Acute
[2017-07-29] MEDS: PROMETHAZINE HCL 25 MG/ML INJ IVP PRN ×2 (11:13→15:29)
[2017-07-29] MEDS: CEFEPIME HCL 2 GM in STERILE WATER INJ 12.5 ML IV SCH ×2 (14:55→20:29)
--- NOTE | 2017-07-29 16:50 | HOSPPROG ---
Hospitalist Progress Note Assessment/Plan: #Acute hypoxic resp failure: multifactorial with PNA and atelectasis. +MARCOS screening -negative resp panel -cont Cefepime with recent hospitalization. Can transition to LQ tomorrow #Recent appendicitis -s/p appy 07/25. Evaluated by Dr Gamble, healing well #Nausea: IV Zofran #Diet: ADAT #DVT: Lovenox #Disp: cont inpatient admission for IVFs, IV abx. Can DC tomorrow if stable Subjective: mild cough with green sputun. Nauseated Objective: Vital Signs Temp Pulse Resp BP Pulse Ox 36.9 C 71 15 126/76 H 95 07/29/17 15:41 07/29/17 15:41 07/29/17 15:41 07/29/17 15:41 07/29/17 15:41 Microbiology 07/29/17 11:49 Respiratory Panel (PCR) - Final Nasal, Sinus - Swab No Organism Detected Laboratory Results 07/29/17 04:23 07/29/17 04:23 07/28/17 07/29/17 07/30/17 05:59 05:59 05:59 Intake Total 1915 1350 Output Total 1200 1375 Balance 715 -25 PT 12.8 SEC (12.0-15.0) 07/28/17 14:08 INR 0.94 (0.83-1.16) 07/28/17 14:08 - Physical Exam Constitutional: uncomfortable Eyes: PERRL Ears, Nose, Mouth, Throat: moist mucous membranes Cardiovascular: regular rate and rhythym Respiratory: no respiratory distress Gastrointestinal: normoactive bowel sounds, soft, non-tender abdomen, other ( surgical incisions healing well), No guarding, No rebound Genitourinary: no bladder fullness Skin: warm Musculoskeletal: full muscle strength Neurologic: AAOx3, CN II-XII Intact ICD10 Worksheet Patient Problems: Problems Problem Status Onset Hypoxia Acute Pneumonia Acute Acute appendicitis Acute
[2017-07-30] MEDS: NS 1,000 ML IV SCH (02:50)
[2017-07-30] MEDS: HYDROCODONE/APAP 5/325 TAB PO PRN ×3 (03:00→12:01)
[2017-07-30] MEDS: IPRATROPIUM/ALBUTEROL 3 ML DEYVIAL IH SCH ×2 (05:11→10:33)
[2017-07-30] MEDS: CEFEPIME HCL 2 GM in STERILE WATER INJ 12.5 ML IV SCH (05:31)
[2017-07-30 05:43] LABS: PLATELET COUNT 227 10^3/uL (150-400)
[2017-07-30] MEDS: ENOXAPARIN 40 MG/0.4 ML SYR SC SCH (09:19)
[2017-07-30] MEDS: SERTRALINE HCL 50 MG TAB PO SCH (09:20)
[2017-07-30] MEDS ORDERED: AZITHROMYCIN 250 MG TAB PO SCH (09:45)
--- NOTE | 2017-07-30 10:17 | ASMTCMCOM ---
CM Note CM Note Notes: Pt to DC today with no DC needs. Date Signed: 07/30/2017 10:16 AM Electronically Signed By:Ruthie Santana LCSW
[2017-07-30 11:45] VITALS: BP 133/89; PULSE 107; RESP 18; TEMP 98.5; O2SAT 90
--- NOTE | 2017-07-30 14:48 | GDS ---
[f rep st] DISCHARGE SUMMARY DISCHARGE DIAGNOSES: 1. Acute hypoxic respiratory failure. 2. Community-acquired pneumonia. 3. Atelectasis. 4. Recent appendicitis status post appendectomy. 5. Nausea. 6. Depression. HISTORY OF PRESENT ILLNESS: A pleasant 36-year-old male with no major past medical history other josiah n a recent suppurative appendicitis with appendectomy on 07/[address] Gamble. He woke up the day of [place] with subjective fevers, dizziness. He reported mild cough with yellow-red sputum. His , who is a physician, had a pulse oximeter at home, checked it and noted him to be in the low 80s. In the ER, CT was negative for pulmonary embolism. HOSPITAL COURSE BY PROBLEM: 1. Acute hypoxic respiratory failure: Suspect this is multifactorial with atelectasis given shallow breaths with abdominal pain and mild infiltrate on imaging. His procalcitonin was mildly elevated. We will cover for community-acquired pneumonia with Augmentin that he was already taking for his abd omen plus adding azithromycin. He was advised to continue incentive spirometry. He was stable on ro om air at discharge today. 2. Community-acquired pneumonia: Was treated with cefepime here. Will transition to azithromycin p qeu the Augmentin he was already taking for his appendicitis. 3. Abdominal pain. This is secondary to recent appendicitis. He was evaluated by Dr. Gamble here. A ppears to be healing well. Continue Augmentin. DISPOSITION: Patient is stable for discharge home. MEDICATIONS: New medication Z-[id number]. FOLLOW UP: 1. Dr. Gamble. 2. Primary care physician. PHYSICAL EXAM: VITALS: Temperature 36.9, blood pressure 133/89, heart rate in the 80s, respiration 18, 90% on room air. GENERAL: Appears brighter today. HEENT: PERRLA, EOMI. Oropharynx clear. CV : Regular rate and rhythm. No murmurs, gallops, rubs. LUNGS: Mildly diminished at bases. ABDOMEN : Soft. Laparoscopic surgical incision is clean and dry, healing well. Positive bowel sounds. : No Zamudio. MUSCULOSKELETAL: 5/5 upper and lower extremity strength. NEURO: 2 through 12 intact. PSYCH: Alert and oriented x3. /[id number]/MODL
== END 2017-07-30 12:17 | disposition home or self-care (01) | DRG 193 ==
LOC: OBSVTOIN 15:35 → F1N 16:41
PROVIDERS: ADMIT Internal Medicine; ATTEND Internal Medicine
DX: J18.0 Bronchopneumonia, unspecified organism (principal); J96.01 Acute respiratory failure with hypoxia; J98.11 Atelectasis; F32.9 Major depressive disorder, single episode, unspecified
CPT/HCPCS: 82947-QW; 96374; J0692; J1650; J1885; J2550; Q9967